=== PATIENT | female | born 1965 | race Asian ===

== ENCOUNTER 2023-12-14 08:20 | Outpatient (CLI) | payer BC ==
[2023-12-14] MEDS ORDERED: Magnevist 469MG/ML 20 ML VIAL ONE ×2 (10:56)
== END 2023-12-14 08:21 | disposition home or self-care (01) ==
LOC: MRI 08:20
PROVIDERS: ATTEND Otolaryngology Pediatric Otolaryngology
DX: H93.12 Tinnitus, left ear (principal)
CPT/HCPCS: 70544; 70549; 70553; 76376